=== PATIENT | male | born 1990 | race Caucasian/White ===

== ENCOUNTER 2019-11-19 18:51 | Emergency (ER) | payer MEDICAID, OTHER ==
[~2019-11-19] VITALS: Ht 180.3 cm; Wt 83.9 kg
--- NOTE | 2019-11-19 19:21 | NUR ---
Dr. Strange at bedside for MSE.
[2019-11-19] MEDS ORDERED: SULFAMETH/TRIMETH 800/160 MG TABLET ONE (19:25)
[2019-11-19] MEDS ORDERED: MUPIROCIN 2% OINT 22 GM TUBE ONE (19:25)
[2019-11-19] MEDS ORDERED: SULFAMETH/TRIMETH 800/160 MG TABLET PO ONE (19:30)
[2019-11-19] MEDS ORDERED: MUPIROCIN 2% OINT 22 GM TUBE TP ONE (19:30)
--- NOTE | 2019-11-19 19:40 | NUR ---
PO atb given and tolerated well, no immediate adverse reactions noted. Open wound on L hip cleansed with NS, pat dry and applied Bactroban ointment as ordered. Covered with dry clean dressing. Written and verbal after care instructions given. Patient verbalizes understanding of instructions. Stressed follow up or return to ER for worsening s/s. Patient discharged to home in stable condition. Walked out of ER in steady gait.
[2019-11-19 19:43] VITALS: BP 140/98
== END 2019-11-19 19:45 | disposition home or self-care (01) ==
LOC: ER 18:51
DX: Z76.0 Encounter for issue of repeat prescription (principal); L02.416 Cutaneous abscess of left lower limb
CPT/HCPCS: A4663